=== PATIENT | male | born 1990 | race Caucasian/White ===

== ENCOUNTER 2023-12-20 08:32 | Emergency (ER) | payer OTHER ==
[~2023-12-20] VITALS: Ht 185.4 cm; Wt 72.6 kg
[2023-12-20 08:35] VITALS: BP 113/65; PULSE 77; RESP 18; TEMP 97.6; O2SAT 98
[2023-12-20 09:10] VITALS: O2SAT 98
== END 2023-12-20 09:40 | disposition home or self-care (01) ==
LOC: MED 08:32
DX: S51.012D Laceration without foreign body of left elbow, subsequent encounter (principal); Z48.02 Encounter for removal of sutures; Z79.899 Other long term (current) drug therapy; X58.XXXD Exposure to other specified factors, subsequent encounter
CPT/HCPCS: 99281